=== PATIENT | female | born 1990 | race Caucasian/White ===

== ENCOUNTER 2018-03-24 09:11 | Emergency (ER) | payer OTHER ==
[~2018-03-24] VITALS: Ht 157.5 cm; Wt 104.3 kg
[~2018-03-24 09:11] MED LIST: AMOXICILLIN500 M1 PO; BENTYL20 MG PO; CORTISPORIN OTI10 ML OT; GLUCOPHAGE1000 MG PO; HYDROCODONE-AP1 EAC6 PO; IBUPROFEN 800800 M1 PO; NOHOMEMEDICATIONS; NORCO 5-325 TA1 EACH PO; PENICILLIN VK250 MG PO; PROMETHAZINE-D120 ML PO; PROVENTIL HFA6.7 G1 INH; ROBAXIN 750 MG750 MG PO; TOBRASOL5 ML OP; TRAMADOL 50 MG50 MG PO; VENTOLIN17 GM INH; ZOFRAN ODT4 MG PO
[2018-03-24] MEDS ORDERED: PREDNISONE 20 M20 M1 PO (09:29)
[2018-03-24 09:50] VITALS: BP 138/79
== END 2018-03-24 09:50 | disposition home or self-care (01) ==
LOC: M.ERS 09:11
DX: L30.9 Dermatitis, unspecified (principal)

== ENCOUNTER 2019-02-23 20:53 | Emergency (ER) | payer OTHER ==
[~2019-02-23] VITALS: Ht 157.5 cm; Wt 113.4 kg
[~2019-02-23 20:53] MED LIST changes: +PREDNISONE 20 M20 M1 PO
[2019-02-23 21:05] VITALS: BP 151/108
[2019-02-23] MEDS ORDERED: IBUPROFEN 800800 M1 PO (21:20)
== END 2019-02-23 21:33 | disposition home or self-care (01) ==
LOC: M.ERS 20:53
DX: R68.84 Jaw pain (principal); R03.0 Elevated blood-pressure reading, without diagnosis of hypertension

== ENCOUNTER 2019-02-25 18:07 | Emergency (ER) | payer OTHER ==
[~2019-02-25] VITALS: Ht 157.5 cm; Wt 113.4 kg
[2019-02-25 18:38] LABS: ABSOLUTE BASOPHILS 0.1 thou/uL (0.0-0.2); ABSOLUTE EOSINOPHILS 0.3 thou/uL (0.0-0.7); ABSOLUTE LYMPHOCYTES 2.7 thou/uL (0.8-5.3); ABSOLUTE MONOCYTES 0.7 thou/uL (0.0-1.2); EOSINOPHILS 3.7 %; HEMATOCRIT 39.9 % (37.0-47.0); HEMOGLOBIN 13.6 gm/dL (12.0-15.0); LYMPHOCYTES 30.6 %; MCH 28.8 pg (26.0-34.0); MCHC 34.2 g/dL (28.0-37.0); MCV 84.3 fL (80.0-100.0); MONOCYTES 7.8 %; NUCLEATED RBCS 0 /100WBC; PLATELET COUNT* 293 thou/uL (150-400); POLYS 56.9 %; RBC 4.73 mil/uL (4.20-5.00); RDW-CV 13.2 % (10.5-14.5); WBC 8.8 thou/uL (4.0-11.0)
[2019-02-25 18:45] LABS: ANION GAP 8 mmol/L (7-16); BUN 10 mg/dL (7-18); CALCIUM 9.3 mg/dL (8.5-10.1); CHLORIDE 105 mmol/L (98-107); CO2 28 mmol/L (21-32); GLUCOSE 107 mg/dL (70-99); POTASSIUM 3.8 mmol/L (3.5-5.1); SODIUM 141 mmol/L (136-145)
[2019-02-25 18:48] LABS: APTT 29.2 Seconds (25.0-31.3); INR 0.9; PROTIME 9.4 Seconds (9.20-11.50)
[2019-02-25 18:58] LABS: ALBUMIN 3.8 g/dL (3.4-5.0); ALKALINE PHOSPHATASE 91 U/L (46-116); CK-MB MASS 1.2 ng/mL (<0.5-3.6); LIPASE 84 U/L (73-393); NT-PRO BRAIN NAT PEPTIDE 23 pg/mL (<300); SGOT 22 U/L (15-37); SGPT 27 U/L (30-65); TOTAL BILIRUBIN 0.2 mg/dL (<0.1-1.0); TOTAL PROTEIN 7.4 g/dL (6.4-8.2); TROPONIN-I LEVEL <0.06 ng/mL (<0.06)
[2019-02-25 19:17] VITALS: BP 157/89
--- NOTE | 2019-02-26 16:26 | EKG ---
[place] [address] ELECTROCARDIOGRAM REPORT Name: URIAH NUNEZ Room: [facility]#: [id number] Admission: 02/25/19 Attend Phys: Discharge: 02/25/19 Date of : 89 Report #: [id number] THIS REPORT FOR: //name// [facility] ED Test Date: 2019-02-25 Test Time: 18:13:33 Pat Name: URIAH NUNEZ Department: Room: Gender: F [address] Freight: BRAULIO : 1990 Requested By: Abdi Zimmerman Order Number: [id number] MD: Antonio Howard Measurements Intervals [place] Rate: 113 P: 59 LA: 144 QRS: 15 QRSD: 82 T: 52 QT: 340 QTc: 467 Interpretive Statements Sinus tachycardia Compared to ECG 10/29/2012 14:45:19 Sinus rhythm no longer present Sinus arrhythmia no longer present Electronically Signed On 02-26-2019 16:25:54 CDT by Antonio Howard [email or web address] <ELECTRONICALLY SIGNED> By: Antonio Howard MD, [facility] 02/26/19 1625 D: [id number] Antonio Howard MD, FACC /EPI
== END 2019-02-25 19:18 | disposition home or self-care (01) ==
LOC: M.ERS 18:07
PROVIDERS: Family Medicine
DX: R00.2 Palpitations (principal); Z90.49 Acquired absence of other specified parts of digestive tract